=== PATIENT | female | born 1970 | race Caucasian/White ===

== ENCOUNTER 2017-01-29 14:21 | Emergency (ER) | payer BC ==
[2017-01-29 14:31] VITALS: BP 120/68; PULSE 101; RESP 18; TEMP 99
--- NOTE | 2017-01-29 15:14 | XR ---
EXAMINATION TYPE: XR foot complete LT DATE OF EXAM: 01/29/2017 3:07 PM COMPARISON: NONE HISTORY: Pain TECHNIQUE: 3 views FINDINGS: There is evidence of a nondisplaced transverse fracture of the base of the fifth metatarsal . There is no dislocation. Joint spaces are normal. IMPRESSION: Acute fracture of the proximal fifth metatarsal.
--- NOTE | 2017-01-29 15:20 | ED ---
Extremity Problem HPI - General Chief complaint: Extremity Problem,Nontraumatic Stated complaint: Foot Injury Time Seen by Provider: 01/29/17 14:47 Source: patient, RN notes reviewed Mode of arrival: ambulatory Limitations: no limitations - History of Present Illness Initial comments: 46-year-old female presents to the ER with left foot pain. She states that she was walking on a hardwood floor when she felt her foot bent underneath and felt some instant pain and had some swelling on the outside aspect of her foot. She denies any trauma or fall. Denies any loss of consciousness. She denies any constitutional symptoms including headache, weakness, numbness or tingling, nauseousness, vomiting or diarrhea. She has not taken anything for pain and describes it as moderate to severe when she tries to walk on it however at rest she is not in any pain. - Related Data Previous Rx's Medication Instructions Recorded Acetaminophen-Codeine 300-30mg 1 tab PO Q4H PRN #30 tablet 01/29/17 [Tylenol #3] Allergies Allergy/AdvReac Type Severity Reaction Status Date / Time No Known Allergies Allergy Verified 01/29/17 14:31 Review of Systems ROS Statement: Those systems with pertinent positive or pertinent negative responses have been documented in the HPI. ROS Other: All systems not noted in ROS Statement are negative. Past Medical History Past Medical History: No Reported History History of Any Multi-Drug Resistant Organisms: None Reported Past Surgical History: Tubal Ligation Past Psychological History: No Psychological Hx Reported Smoking Status: Current every day smoker Past Alcohol Use History: Rare Past Drug Use History: None Reported General Exam Limitations: no limitations General appearance: alert, in no apparent distress Head exam: Present: atraumatic, normocephalic Eye exam: Present: normal appearance, PERRL, EOMI Pupils: Present: normal accommodation Respiratory exam: Present: normal lung sounds bilaterally Cardiovascular Exam: Present: regular rate, normal rhythm Extremities exam: Present: other (Left foot: Edema at the base of the fifth metatarsal. Tenderness with palpation of the base of the fifth metatarsal. Range of motion intact for ankle. Capillary refill and neurovascular status intact of the left lower extremity. Special testing for ankle joint including anterior drawer and talar fib test are within normal limits. There is no ecchymosis, abrasion or lacerations noted.) Neurological exam: Present: alert, oriented X3, CN II-XII intact, other (Unable to bear weight on the left foot) Psychiatric exam: Present: normal affect, normal mood Skin exam: Present: warm, dry, intact, other (Edema left lateral foot) Course Vital Signs 01/29/17 01/29/17 14:28 15:39 Temperature 99.0 F 99.0 F Pulse Rate 101 H 101 H Respiratory 18 18 Rate Blood Pressure 120/68 120/68 O2 Sat by Pulse 97 97 Oximetry Medical Decision Making - Medical Decision Making 40 erythema presented to the ER with lateral foot pain. Upon exam she does have localized swelling over the base of the fifth metatarsal and tenderness upon palpation. An x-ray was ordered to evaluate the foot. The x-ray does show that there was a fracture nondisplaced of the base of the left fifth metatarsal. Patient was put in a postop boot and given crutches to diminish weightbearing on the foot. She is instructed to follow-up with orthopedics and was given CT imaging of her x-rays. Patient was given Tylenol 3 to help with pain and instructed to alternate with Motrin at home. All questions were answered and patient was agreeable to treatment plan. - Radiology Data Radiology results: report reviewed (Nondisplaced non-angulated fracture of the base of the fifth metatarsal left foot.), image reviewed (Fracture at base of the left fifth metatarsal nondisplaced.) Disposition Clinical Impression: Fracture of fifth metatarsal bone of left foot Disposition: HOME SELF-CARE Condition: Good Instructions: Foot Fracture in Adults (ED) Additional Instructions: To follow-up with orthopedic doctor. To return to the ER with any worsening symptoms or concerns. Prescriptions: Acetaminophen-Codeine 300-30mg [Tylenol #3] 1 tab PO Q4H PRN #30 tablet PRN Reason: Pain Referrals: Karla Landrum, NEIL [PHYSICIAN FRANCHISE MANAGER] - 1-2 days Time of Disposition: 15:54
== END 2017-01-29 15:39 | disposition home or self-care (01) ==
LOC: EC 14:21
DX: S92.355A Nondisplaced fracture of fifth metatarsal bone, left foot, initial encounter for closed fracture (principal); F17.200 Nicotine dependence, unspecified, uncomplicated; X58.XXXA Exposure to other specified factors, initial encounter; Y93.01 Activity, walking, marching and hiking
CPT/HCPCS: 99283

== ENCOUNTER 2018-06-26 07:52 | Day surgery (SDC) | payer BC, OTHER ==
[2018-06-22 15:07] VITALS: BMI 22.4
[~2018-06-26 07:52] MED LIST: LACTATED RINGERS 1,000 ML IV SCH
[2018-06-26 08:53] VITALS: RESP 16; TEMP 98.6
[2018-06-26] MEDS ORDERED: PROPOFOL 10 MG/ML 20 ML VIAL IV ONE (09:54)
[2018-06-26] MEDS ORDERED: LIDOCAINE 1% INJ 10MG/ML (20 ML MDV) ONE (09:54)
--- NOTE | 2018-06-26 10:31 | P.PCN ---
Date of Procedure: 06/26/18 Procedure(s) Performed: Procedure: Colonoscopy and polypectomy. Preoperative diagnosis: Screening for neoplasia, patient has history of polyps. Postoperative diagnoses: 1. Diverticulosis with no evidence of acute diverticulitis or strictures. 2. Small right colon and sigmoid polyps snared but no large polyps or cancer. Preparation: HalfLytely prep. Sedation: Was provided by anesthesia. Brief clinical history: The patient is a 48-year-old female who is scheduled for this evaluation for screening for neoplasia. The patient, apparently, had polyps removed when she was 7 years old but had no evaluation since. The patient has no abdominal complaints, bleeding or anemia. Procedure: With the patient on her left lateral decubitus position and after informed consent and adequate sedation, the perianal area was inspected and it did not show any fissures or fistulas. There were no masses felt on digital rectal examination. The Olympus CFQ 160L video colonoscope was then inserted in the rectum in the usual fashion and advanced to the cecum. There were a few diverticular orifices seen scattered in the sigmoid and occasional diverticular orifice around the hepatic flexure, but there was no evidence of acute diverticulitis or strictures. In the distal right colon and rectum, there were 2 small polyps which were snared and retrieved by suction but there were no large polyps or cancer. I retroflexed the endoscope in the rectum before the endoscope was withdrawn. The patient tolerated the procedure well. Plan: The patient was reassured. Discussed dietary measures. I recommended repeat examination in 5 years. She we will follow up with you as planned.
[2018-06-26 10:49] VITALS: BP 126/77; PULSE 84
[2018-06-26] MEDS ORDERED: LACTATED RINGERS 1,000 ML IV SCH (21:45)
== END 2018-06-26 11:06 | disposition home or self-care (01) ==
LOC: ORWHC2ENDO 07:52
DX: Z12.11 Encounter for screening for malignant neoplasm of colon (principal); D12.2 Benign neoplasm of ascending colon; K62.1 Rectal polyp; K57.30 Diverticulosis of large intestine without perforation or abscess without bleeding; Z86.010 Personal history of colon polyps; Z79.1 Long term (current) use of non-steroidal anti-inflammatories (NSAID)
CPT/HCPCS: 88305; 45385; J2001; J2704

== ENCOUNTER → 2018-07-04 | Outpatient (CLI) | payer OTHER ==
--- NOTE | 2018-07-05 05:38 | MR ---
EXAMINATION TYPE: MR brain wo con DATE OF EXAM: 07/04/2018 COMPARISON: NONE HISTORY: Change in vision, headaches, dizziness, numbness in upper extremities, joint pain, memory lo ss, fatigue all purpose patient. Mononeuropathy bilateral upper extremity per order. TECHNIQUE: Multiplanar, multisequence imaging of the brain and brainstem is performed without IV cont rast. FINDINGS: Diffusion weighted images demonstrate no evidence of a recent infarct or other diffusion abnormality. There is no ordered some extra-axial fluid collection. The ventricular system and cisternal spaces a re normal in size and appearance. The brain volume is age appropriate. There are scattered foci of T 2 hyperintensity seen throughout the white matter bilaterally. I estimate roughly 15 scattered lesion s, majority superficial location. For reference roughly 7 lesions are seen on axial image 22 with lar gest being a 5 mm right parietal superficial lesion. Midline structures demonstrate normal morphology. The craniocervical junction appears within normal limits. Normal vascular flow voids are present. Tortuous course to the distal right vertebral artery is present. The visualized sinuses are clear and the globes are intact. IMPRESSION: Mild nonspecific white matter changes as detailed above.
== END ==
LOC: RADMRIMAIN 17:47
PROVIDERS: ATTEND Family Medicine
DX: R90.89 Other abnormal findings on diagnostic imaging of central nervous system (principal); G56.93 Unspecified mononeuropathy of bilateral upper limbs
CPT/HCPCS: 70551

== ENCOUNTER → 2018-07-18 | Outpatient (CLI) | payer OTHER ==
--- NOTE | 2018-07-18 14:34 | CT ---
EXAMINATION TYPE: CT chest wo con DATE OF EXAM: 07/18/2018 COMPARISON: None HISTORY: Solitary pulmonary nodule CT DLP: 174.4 mGycm. Automated Exposure Control for Dose Reduction was Utilized. TECHNIQUE: CT scan of the thorax is performed without IV contrast. FINDINGS: LUNGS: The lungs are grossly remarkable for subpleural nodule on axial image 25 posteriorly at the le kishan of the superior segment of the right lower lobe measuring approximately 4 to 5 mm. In the left lo wer lobe on axial image 48 nodular density is present which may be related to scarring and measures o nly 5 mm laterally. There is no pleural effusion or pneumothorax seen. The tracheobronchial tree i s patent. Mild centrilobular emphysematous changes are present. MEDIASTINUM: Lack of IV contrast is noted to limit evaluation for mediastinal and especially hilar ad enopathy. There are no definitive greater than 1 cm hilar or mediastinal lymph nodes. No cardiomega ly or pericardial effusion is seen. OTHER: There is joint space loss at the sternomanubrial junction, sclerosis is present in the subchon dral location, findings may be due to chronic stress change, chronic infection felt to be less likely , correlate. Degenerative disc changes are present in the visualized spine. IMPRESSION: Pulmonary nodules felt likely to be benign, document 2 years of stability or better evalu ation. Findings at the sternomanubrial joint as described. Emphysema changes are mild.
== END ==
LOC: RADCTMAIN 13:42
PROVIDERS: ATTEND Family Medicine
DX: J43.9 Emphysema, unspecified (principal); R91.8 Other nonspecific abnormal finding of lung field
CPT/HCPCS: 71250

== ENCOUNTER → 2018-10-12 | Outpatient (CLI) | payer BC ==
[2018-10-12 16:40] LABS: Basophils % (A) 1 %; Eosinophils # (A) 0.1 k/uL (0-0.7); Eosinophils % (A) 2 %; HCT 45.5 % (34.0-46.0); HGB 14.8 gm/dL (11.4-16.0); Lymphocytes # (A) 2.9 k/uL (1.0-4.8); Lymphocytes % (A) 46 %; MCH 31.4 pg (25.0-35.0); MCHC 32.5 g/dL (31.0-37.0); MCV 96.5 fL (80.0-100.0); Mean Platelet Volume 6.5; Monocytes # (A) 0.3 k/uL (0-1.0); Monocytes % (A) 4 %; Neutrophils # (A) 2.8 k/uL (1.3-7.7); Neutrophils % (A) 44 %; Platelet Count 315 k/uL (150-450); RBC 4.72 m/uL (3.80-5.40); RDW 12.9 % (11.5-15.5); WBC 6.3 k/uL (3.8-10.6)
[2018-10-12 19:29] LABS: Erythrocyte Sedimentation Rate 6 mm/hr (0-20)
[2018-10-12 22:44] LABS: Rheumatoid Factor 7 IU/mL (0-15)
[2018-10-12 22:46] LABS: ALT 16 U/L (8-44); AST 27 U/L (13-35); Alkaline Phosphatase 69 U/L (41-126); C Reactive Protein <0.4 mg/dL (0.0-0.8); Calcium 9.3 mg/dL (8.7-10.3); Chloride 109 mmol/L (96-109); Globulin 1.8 g/dL (1.6-3.3); Glucose 69 mg/dL (70-110); Potassium 4.7 mmol/L (3.5-5.5); Sodium 143 mmol/L (135-145); Total Bilirubin 0.2 mg/dL (0.3-1.2); Total Protein 6.3 g/dL (6.2-8.2)
[2018-10-12 22:48] LABS: Vitamin D 25 Hydroxy 16.7 ng/mL (30.0-100.0)
== END ==
LOC: LABWHC1 16:08
PROVIDERS: ATTEND Nurse Practitioner Acute Care
DX: M13.0 Polyarthritis, unspecified (principal); H53.9 Unspecified visual disturbance; R20.2 Paresthesia of skin; R51 Headache; R42 Dizziness and giddiness
CPT/HCPCS: 36415; 80053; 82306; 82607; 84207; 85025; 85652; 86038; 86140; 86431

== ENCOUNTER → 2018-10-23 | Outpatient (CLI) | payer BC | END | disposition home or self-care (01) | LOC: LABWHC1 15:05 | PROVIDERS: ATTEND Psychiatry & Neurology Neurology | DX: Z53.9 Procedure and treatment not carried out, unspecified reason (principal) ==

== ENCOUNTER → 2018-12-17 | Outpatient (CLI) | payer BC ==
--- NOTE | 2018-12-17 09:47 | FL ---
EXAMINATION TYPE: FL barium swallow DATE OF EXAM: 12/17/2018 CLINICAL HISTORY: Dysphagia per order. Food and liquids getting stuck for one month increasing in sev erity over last week with heartburn and reflux-like symptoms. Recent course of steroids without impro vement. TECHNIQUE: A double contrast esophagram is performed utilizing air and barium. A total of 33 second s of fluoroscopic time was utilized during procedure. 41 spot images are saved. COMPARISON: Chest CT July 18, 2018. FINDINGS: The esophagus shows satisfactory motility and emptying into the stomach. No evidence of in traluminal mass, outpouching diverticulum, or stricture noted. Small sliding-type hiatal hernia is vi sualized towards end of study. No fixed hernia is seen. No significant gastroesophageal reflux was se en during real time performance of this study. IMPRESSION: Small sliding-type hiatal hernia otherwise unremarkable study.
== END | disposition home or self-care (01) ==
LOC: RADFLWHC 09:02
PROVIDERS: ATTEND Family Medicine
DX: K44.9 Diaphragmatic hernia without obstruction or gangrene (principal)
CPT/HCPCS: 74220

== ENCOUNTER → 2019-07-09 | Outpatient (CLI) | payer BC ==
--- NOTE | 2019-07-09 16:07 | CT ---
EXAMINATION TYPE: CT sinus wo con DATE OF EXAM: 07/09/2019 COMPARISON: None HISTORY: 49-year-old female CHRONIC SINUS INFECTIONS, [place] CT DLP: 559 mGycm Automated exposure control for dose reduction was used. TECHNIQUE: Noncontrast axial views of the paranasal sinuses were obtained. Coronal reconstructions pe rformed. FINDINGS: PARANASAL SINUSES: The frontal, ethmoid, maxillary and sphenoid sinuses are clear and well pneumatized. There is no mucosal thickening or air-fluid level. Reactive loli- osteogenesis is not seen. There is no destruction of the osseous mcmahan of the paranasal sinuses. THE NASAL CAVITY: The osteomeatal complexes are patent. All rightward nasal septal deviation. The imaged brain and orbits are normal in appearance. The visualized mastoid air cells and middle ear cavities are well pneumatized. Reformatted images confirm above findings. IMPRESSION: No significant paranasal sinus disease. Rightward nasal septal deviation.
== END | disposition home or self-care (01) ==
LOC: RADCTMAIN 13:26
PROVIDERS: ATTEND Otolaryngology Otolaryngic Allergy
DX: J34.2 Deviated nasal septum (principal); J31.0 Chronic rhinitis
CPT/HCPCS: 70486

== ENCOUNTER → 2019-08-12 | Outpatient (CLI) | payer BC ==
--- NOTE | 2019-08-13 08:32 | BD ---
EXAMINATION TYPE: Axial Bone Density DATE OF EXAM: 08/12/2019 COMPARISON: NONE CLINICAL HISTORY: Height: 60.5 IN Weight: 136 LBS FRAX RISK QUESTIONS: Secondary Osteoporosis: Current Tobacco Use: YES RISK FACTORS HISTORY OF: History of Wrist Fracture: YES LEFT When: AGE 8 Family History of Osteoporosis: YES GRANDMOTHER (M) Active: YES Postmenopausal woman: AGE 43 Take estrogen and/or progesterone medications: NOT NOW How lon YEAR Lost more than 2 inches in height since high school: YES 09/19" MEDICATIONS: Additional Medications: VIT D, LOW DOSE ASPIRIN, ANXIETY MED, LYRICA, MOBIC, MUSCLE SPASM MED, MIGRAI NE MED, MULTI VIT, ELDERBERRY EXAM MEASUREMENTS: Bone mineral densitometry was performed using the [employer]. Bone mineral density as measured about the Lumbar spine is: ----- L1-L4(G/cm2): 1.043 T Score Values are as follows: ----- L2: -1.7 ----- L3: -1.0 ----- L4: -0.7 ----- L1-L4: -1.1 Bone mineral density BASELINE Bone mineral density about the R hip (g/cm2): 0.902 Bone mineral density about the L hip (g/cm2): 0.965 T Score values are as follows: -----R Neck: -1.0 -----L Neck: -0.5 -----R Total: -0.6 -----L Total: -0.6 Bone mineral density BASELINE IMPRESSION: Osteopenia lumbar spine. NOTE: T-SCORE=SD OF THE YOUNG ADULT MEAN.
== END | disposition home or self-care (01) ==
LOC: RADBDWWP 15:11
PROVIDERS: ATTEND Family Medicine
DX: Z13.820 Encounter for screening for osteoporosis (principal); M85.88 Other specified disorders of bone density and structure, other site
CPT/HCPCS: 77080

== ENCOUNTER → 2019-08-27 | Outpatient (CLI) | payer BC | END | disposition home or self-care (01) | LOC: LABWHC1 16:05 | PROVIDERS: ATTEND Nurse Practitioner Acute Care | DX: I49.9 Cardiac arrhythmia, unspecified (principal) | CPT/HCPCS: 36415; 93005 ==

== ENCOUNTER → 2020-03-02 | Outpatient (CLI) | payer BC ==
[2020-03-02 14:47] LABS: Basophils % (A) 1 %; Eosinophils # (A) 0.1 k/uL (0-0.7); Eosinophils % (A) 1 %; HCT 43.9 % (34.0-46.0); HGB 14.5 gm/dL (11.4-16.0); Lymphocytes # (A) 2.2 k/uL (1.0-4.8); Lymphocytes % (A) 34 %; MCH 31.6 pg (25.0-35.0); MCHC 33.1 g/dL (31.0-37.0); MCV 95.3 fL (80.0-100.0); Mean Platelet Volume 6.9; Monocytes # (A) 0.3 k/uL (0-1.0); Monocytes % (A) 5 %; Neutrophils # (A) 3.7 k/uL (1.3-7.7); Neutrophils % (A) 57 %; Platelet Count 258 k/uL (150-450); RDW 13.3 % (11.5-15.5); WBC 6.5 k/uL (3.8-10.6)
[2020-03-02 17:24] LABS: Erythrocyte Sedimentation Rate 8 mm/hr (0-20)
[2020-03-02 20:37] LABS: % Iron Saturation 30.38 (12.00-45.00); ALT 23 U/L (8-44); AST 31 U/L (13-35); African American GFR (CKD) 122.3 (60.0-200.0); Albumin/Globulin Ratio 2.44 (1.60-3.17); Alkaline Phosphatase 59 U/L (41-126); BUN/Creat Ratio 18.33 Ratio (12.00-20.00); C Reactive Protein <0.4 mg/dL (0.0-0.8); Calcium 9.4 mg/dL (8.7-10.3); Carbon Dioxide 29.1 mmol/L (21.6-31.8); Chloride 108 mmol/L (96-109); Globulin 1.8 g/dL (1.6-3.3); Glucose 85 mg/dL (70-110); Iron 120 ug/dL (50-170); Non-African American GFR(CKD) 105.5 (60.0-200.0); Potassium 4.9 mmol/L (3.5-5.5); Sodium 142 mmol/L (135-145); Total Bilirubin 0.4 mg/dL (0.3-1.2); Total Iron Binding Capacity 395 ug/dL (228-460); Total Protein 6.2 g/dL (6.2-8.2)
== END | disposition home or self-care (01) ==
LOC: LABWHC1 13:31
PROVIDERS: ATTEND Nurse Practitioner Acute Care
DX: D64.9 Anemia, unspecified (principal); R53.82 Chronic fatigue, unspecified; E55.9 Vitamin D deficiency, unspecified; M13.0 Polyarthritis, unspecified
CPT/HCPCS: 36415; 80053; 82306; 82607; 83540; 83550; 84207; 84439; 84443; 84481; 85025; 85652; 86140

== ENCOUNTER → 2020-03-26 | Outpatient (CLI) | payer BC ==
--- NOTE | 2020-03-26 14:47 | MR ---
EXAMINATION TYPE: MR knee RT wo con DATE OF EXAM: 03/26/2020 COMPARISON: None HISTORY: Right knee pain TECHNIQUE: Multiplanar, multisequence images of the knee is performed without IV contrast. FINDINGS: MEDIAL MENISCUS: Anterior and posterior horns are intact without tear. LATERAL MENISCUS: Anterior and posterior horns are intact without tear. CRUCIATE LIGAMENTS: There is increased signal involving the ACL at its tibial insertion felt to refle ct strain. No evidence for partial or complete tear. PCL is intact. COLLATERAL LIGAMENTS: The medial collateral ligament and lateral collateral ligament complex are inta ct and unremarkable. EXTENSOR MECHANISM: Visualized quadriceps and patellar tendons are intact. EFFUSION: No significant suprapatellar joint effusion. POPLITEAL CYST: No popliteal/ramirez cyst. TRICOMPARTMENT SPACES: Intact CARTILAGE: Intact BONE MARROW SIGNAL: No focal abnormal marrow signal is appreciated. OTHER: Mild prepatellar edema noted. IMPRESSION: 1. Suspect ACL strain. 2. Mild prepatellar edema.
--- NOTE | 2020-03-26 15:46 | MR ---
EXAMINATION TYPE: MR knee LT wo con DATE OF EXAM: 03/26/2020 COMPARISON: none HISTORY: R52 pain TECHNIQUE: Multiplanar, multisequence images of the knee is performed without IV contrast. FINDINGS: MEDIAL MENISCUS: Myxoid degeneration posterior horn medial meniscus without definite tear. Anterior h orn is intact. LATERAL MENISCUS: Anterior and posterior horns are intact without tear. CRUCIATE LIGAMENTS: The anterior and posterior cruciate ligaments are intact and unremarkable. COLLATERAL LIGAMENTS: The medial collateral ligament and lateral collateral ligament complex are inta ct and unremarkable. EXTENSOR MECHANISM: Visualized quadriceps and patellar tendons are intact. EFFUSION: No significant suprapatellar joint effusion. POPLITEAL CYST: Pérez's cyst measuring 2.1 cm. TRICOMPARTMENT SPACES: Intact CARTILAGE: Intact BONE MARROW SIGNAL: No focal abnormal marrow signal is appreciated. OTHER: No additional significant abnormality is appreciated. IMPRESSION: Myxoid degeneration posterior horn medial meniscus without evidence for tear.
== END | disposition home or self-care (01) ==
LOC: RADMRIMAIN 13:15
PROVIDERS: ATTEND Nurse Practitioner Acute Care
DX: M25.562 Pain in left knee (principal); R60.0 Localized edema

== ENCOUNTER → 2020-07-03 | Outpatient (CLI) | payer BC | END | disposition home or self-care (01) | LOC: LABWHC1 10:35 | PROVIDERS: ATTEND Nurse Practitioner Acute Care | DX: I49.9 Cardiac arrhythmia, unspecified (principal) | CPT/HCPCS: 36415; 93005 ==

== ENCOUNTER → 2020-08-07 | Outpatient (CLI) | payer BC ==
[2020-08-07 12:22] LABS: Basophils % (A) 0 %; Eosinophils # (A) 0.1 k/uL (0-0.7); Eosinophils % (A) 1 %; HCT 42.7 % (34.0-46.0); HGB 13.7 gm/dL (11.4-16.0); Lymphocytes # (A) 2.3 k/uL (1.0-4.8); Lymphocytes % (A) 32 %; MCH 30.7 pg (25.0-35.0); MCV 95.8 fL (80.0-100.0); Mean Platelet Volume 6.3; Monocytes # (A) 0.3 k/uL (0-1.0); Monocytes % (A) 4 %; Neutrophils # (A) 4.3 k/uL (1.3-7.7); Neutrophils % (A) 60 %; Platelet Count 267 k/uL (150-450); RBC 4.46 m/uL (3.80-5.40); RDW 13.2 % (11.5-15.5); WBC 7.2 k/uL (3.8-10.6)
[2020-08-07 19:47] LABS: African American GFR (CKD) 121.5 (60.0-200.0); Albumin 4.1 g/dL (3.80-4.90); Albumin/Globulin Ratio 2.41 (1.60-3.17); Anion Gap 2.9 mmol/L (4.00-12.00); BUN/Creat Ratio 18.33 Ratio (12.00-20.00); Carbon Dioxide 31.1 mmol/L (21.6-31.8); Chol/HDL Ratio 3.18; Globulin 1.7 g/dL (1.6-3.3); LDL Cholesterol,Calculated 145.4 mg/dL (0.0-131.0); Non-African American GFR(CKD) 104.8 (60.0-200.0); Potassium 4.2 mmol/L (3.5-5.5); Total Bilirubin 0.2 mg/dL (0.2-1.2); Total Protein 5.8 g/dL (6.2-8.2); VLDL Calculation 11.6 mg/dL (5.00-40.00)
[2020-08-07 21:52] LABS: T4, Free (Free Thyroxine) 0.9 ng/dL (0.80-1.80)
== END | disposition home or self-care (01) ==
LOC: LABWHC1 11:21
PROVIDERS: ATTEND Nurse Practitioner Acute Care
DX: E55.9 Vitamin D deficiency, unspecified (principal); Z51.81 Encounter for therapeutic drug level monitoring
CPT/HCPCS: 36415; 80053; 80061; 82306; 82607; 84439; 84443; 84481; 85025

== ENCOUNTER → 2021-02-08 | Outpatient (CLI) | payer OTHER | END | disposition home or self-care (01) | LOC: LABWHC1 12:52 | PROVIDERS: ATTEND Nurse Practitioner Acute Care | DX: I49.9 Cardiac arrhythmia, unspecified (principal) | CPT/HCPCS: 36415; 93005 ==

== ENCOUNTER → 2021-04-09 | Outpatient (CLI) | payer OTHER ==
[2021-04-09 19:27] LABS: WBC 5.73 X 10*3/uL (4.50-10.00)
[2021-04-09 19:28] LABS: Basophils # (A) 0.03 X 10*3/uL (0.00-0.10); Basophils % (A) 0.5 %; Eosinophils # (A) 0.11 X 10*3/uL (0.04-0.35); Eosinophils % (A) 1.9 %; HGB 13.5 g/dL (12.0-15.0); Lymphocytes # (A) 2.07 X 10*3/uL (0.90-5.00); Lymphocytes % (A) 36.1 %; MCH 30.9 pg (27.0-32.0); MCHC 32.1 g/dL (32.0-37.0); MCV 96.1 fL (80.0-97.0); Mean Platelet Volume 9.7 fL (9.5-12.2); Monocytes # (A) 0.42 X 10*3/uL (0.20-1.00); Monocytes % (A) 7.3 %; Neutrophils # (A) 3.09 X 10*3/uL (1.80-7.70); Platelet Count 252 X 10*3/uL (140-440); RBC 4.37 X 10*6/uL (4.10-5.20); RDW 13.2 % (11.5-14.5)
[2021-04-09 23:55] LABS: ALT 30 U/L (8-44); AST 38 U/L (13-35); African American GFR (CKD) 120.6 (60.0-200.0); Albumin/Globulin Ratio 2.05 (1.60-3.17); Alkaline Phosphatase 65 U/L (41-126); BUN/Creat Ratio 16.67 Ratio (12.00-20.00); Calcium 9.3 mg/dL (8.7-10.3); Carbon Dioxide 26.5 mmol/L (21.6-31.8); Chloride 113 mmol/L (96-109); Globulin 2.1 g/dL (1.6-3.3); Glucose 90 mg/dL (70-110); Non-African American GFR(CKD) 104.1 (60.0-200.0); Potassium 4.9 mmol/L (3.5-5.5); Sodium 143 mmol/L (135-145); Total Bilirubin 0.3 mg/dL (0.2-1.2); Total Protein 6.4 g/dL (6.2-8.2)
[2021-04-10 00:55] LABS: Vitamin B12 >4000.0 pg/mL (211-911)
== END | disposition home or self-care (01) ==
LOC: LABWHC1 12:10
PROVIDERS: ATTEND Nurse Practitioner Acute Care
DX: M79.7 Fibromyalgia (principal); E55.9 Vitamin D deficiency, unspecified; E53.9 Vitamin B deficiency, unspecified; R90.82 White matter disease, unspecified
CPT/HCPCS: 36415; 80053; 82306; 82607; 84207; 85025

== ENCOUNTER → 2022-06-21 | Outpatient (CLI) | payer MEDICARE | END | disposition home or self-care (01) | LOC: LABWHC1 13:53 | PROVIDERS: ATTEND Nurse Practitioner Acute Care | DX: I49.9 Cardiac arrhythmia, unspecified (principal) | CPT/HCPCS: 36415; 93005 ==

== ENCOUNTER 2024-03-08 07:17 | Emergency (ER) | payer MEDICARE ==
--- NOTE | 2024-03-08 07:36 | ED ---
General Adult HPI - General Chief complaint: Nausea/Vomiting/Diarrhea Stated complaint: Vomiting,Abd pain Time Seen by Provider: 03/08/24 07:30 Source: patient, RN notes reviewed, old records reviewed Mode of arrival: ambulatory Limitations: no limitations - History of Present Illness Initial comments: This is a 53-year-old female who presents emergency department stating that yesterday she started feeling sick and she had a temperature. Patient states she also started vomiting yesterday. Patient states she has had diarrhea but that has been ongoing for the last month. Patient denies abdominal pain. Patient has dysuria hematuria urinary frequency. Patient Nuys any sore throat or cough. Patient denies any chest pain. Patient states she has a mild headache. But she has not taken anything for fever. Patient denies any back pain. - Related Data Previous Rx's Medication Instructions Recorded Acetaminophen-Codeine 300-30mg 1 tab PO Q4H PRN #30 tablet 01/29/17 [Tylenol #3] Allergies Allergy/AdvReac Type Severity Reaction Status Date / Time No Known Allergies Allergy Verified 07/10/18 10:00 Review of Systems ROS Statement: Those systems with pertinent positive or pertinent negative responses have been documented in the HPI. ROS Other: All systems not noted in ROS Statement are negative. Past Medical History Past Medical History: No Reported History Additional Past Medical History / Comment(s): Severe constipation, nodules on her lung had a CT scan but states everything is ok. Severe headache about 3 months ago. States just feels terrible. History of Any Multi-Drug Resistant Organisms: None Reported Past Surgical History: Tubal Ligation Additional Past Surgical History / Comment(s): Polyps removed. Surgery as a child on her intestine not sure what she had done. Past Anesthesia/Blood Transfusion Reactions: No Reported Reaction Past Psychological History: No Psychological Hx Reported Smoking Status: Never smoker Past Alcohol Use History: Rare Past Drug Use History: None Reported - Past Family History Father Family Medical History: Cancer Additional Family Medical History / Comment(s): Lung Mother Family Medical History: No Reported History General Exam - General Exam Comments Initial Comments: GENERAL: Patient is well-developed and well-nourished. Patient is nontoxic and well- hydrated and is in mild distress. ENT: Neck is soft and supple. No significant lymphadenopathy is noted. Oropharynx is clear. Moist mucous membranes. Neck has full range of motion without eliciting any pain. EYES: The sclera were anicteric and conjunctiva were pink and moist. Extraocular movements were intact and pupils were equal round and reactive to light. Eyelids were unremarkable. PULMONARY: Unlabored respirations. Good breath sounds bilaterally. No audible rales rhonchi or wheezing was noted. CARDIOVASCULAR: There is a regular rate and rhythm without any murmurs gallops or rubs. ABDOMEN: Soft and nontender with normal bowel sounds. SKIN: Skin is clear with no lesions or rashes and otherwise unremarkable. NEUROLOGIC: Patient is alert and oriented x3. Cranial nerves II through XII are grossly intact. Motor and sensory are also intact. Normal speech, volume and content. Symmetrical smile. MUSCULOSKELETAL: Normal extremities with adequate strength and full range of motion. No lower extremity swelling or edema. No calf tenderness. LYMPHATICS: No significant lymphadenopathy is noted PSYCHIATRIC: Normal psychiatric evaluation. Limitations: no limitations Course Vital Signs 03/08/24 03/08/24 03/08/24 07:28 07:31 08:40 Temperature 98.1 F 100 F H 98.9 F Pulse Rate 111 H Respiratory 20 Rate Blood Pressure 126/79 O2 Sat by Pulse 99 Oximetry Medical Decision Making - Medical Decision Making Was pt. sent in by a medical professional or institution (, PA, [facility], urgent care, hospital, or jail...) When possible be specific @ -No Did you speak to anyone other than the patient for history (EMS, parent, family, police, friend...)? What history was obtained from this source @ -No Did you review nursing and triage notes (agree or disagree)? Why? @ -I reviewed and agree with nursing and triage notes Were old charts reviewed (outside hosp., previous admission, EMS record, old EKG, old radiological studies, urgent care reports/EKG's, jail records)? Report findings @ -No old charts were reviewed Differential Diagnosis (chest pain, altered mental status, abdominal pain women, abdominal pain men, vaginal bleeding, weakness, fever, dyspnea, syncope, headache, dizziness, GI bleed, back pain, seizure, CVA, palpatations, mental health, musculoskeletal)? @ -Differential Abdominal Pain Women: Appendicitis, Cholecystitis, diverticulosis, ischemic bowel, pancreatitis, hepatitis, UTI, gastroenteritis, AAA, incarcerated hernia, bowel obstruction, constipation, inflammatory bowel, hepatitis, peptic ulcer disease, splenic infarction, perforated viscus, vulvitis, ovarian torsion, PID, kidney stone, placenta abruption, this is not meant to be an all-inclusive list EKG interpreted by me (3pts min.). @ -As above X-rays interpreted by me (1pt min.). @ -None done CT interpreted by me (1pt min.). @ -None done U/S interpreted by me (1pt. min.). @ -None done What testing was considered but not performed or refused? (CT, X-rays, U/S, labs)? Why? @ -None What meds were considered but not given or refused? Why? @ -None Did you discuss the management of the patient with other professionals (professionals i.e. , PA, [facility] [facility], lab, RT, psych nurse, social insurance specialist, business associate, teacher, special forces warrant officer, outpatient case manager)? Give summary @ -No Was smoking cessation discussed for >3mins.? @ -No Was critical care preformed (if so, how long)? @ -No Were there social determinants of health that impacted care today? How? (Homelessness, low income, unemployed, alcoholism, drug addiction, transportation, low edu. Level, literacy, decrease access to med. care, penitentiary, rehab)? @ -No Was there de-escalation of care discussed even if they declined (Discuss DNR or withdrawal of care, Hospice)? DNR status @ -No What co-morbidities impacted this encounter? (DM, HTN, Smoking, COPD, CAD, Cancer, CVA, ARF, Chemo, Hep., AIDS, mental health diagnosis, sleep apnea, morbid obesity)? @ -None Was patient admitted / discharged? Hospital course, mention meds given and route, prescriptions, significant lab abnormalities, going to OR and other per tinent info. @ -Patient was given Zofran and Lomotil in the emergency department. Patient's lab work and back within normal range. I went back and reexamined the patient she was having no symptoms at this time and she will be discharged home. Undiagnosed new problem with uncertain prognosis? @ -No Drug Therapy requiring intensive monitoring for toxicity (Heparin, Nitro, Insulin, Cardizem)? @ -No Were any procedures done? @ -No Diagnosis/symptom? @ -Gastroenteritis Acute, or Chronic, or Acute on Chronic? @ -Acute Uncomplicated (without systemic symptoms) or Complicated (systemic symptoms)? @ -Complicated Side effects of treatment? @ -No Exacerbation, Progression, or Severe Exacerbation? @ -No Poses a threat to life or bodily function? How? (Chest pain, [place], NH, pneumonia, PE, COPD, DKA, ARF, appy, cholecystitis, CVA, Diverticulitis, Homicidal, Suicidal, threat to staff... and all critical care pts) @ -No - Lab Data Result diagrams: 03/08/24 07:39 03/08/24 07:39 Lab Results 03/08/24 03/08/24 03/08/24 Range/Units 07:39 07:39 07:39 WBC 6.9 (3.8-10.6) k/uL RBC 5.07 (3.80-5.40) m/uL Hgb 15.2 (11.4-16.0) gm/dL Hct 47.6 H (34.0-46.0) % MCV 93.9 (80.0-100.0) fL MCH 30.0 (25.0-35.0) pg MCHC 31.9 (31.0-37.0) g/dL RDW 14.1 (11.5-15.5) % Plt Count 278 (150-450) k/uL MPV 7.3 Neutrophils % 76 % Lymphocytes % 16 % Monocytes % 6 % Eosinophils % 0 % Basophils % 0 % Neutrophils # 5.2 (1.3-7.7) k/uL Lymphocytes # 1.1 (1.0-4.8) k/uL Monocytes # 0.4 (0-1.0) k/uL Eosinophils # 0.0 (0-0.7) k/uL Basophils # 0.0 (0-0.2) k/uL Sodium 138 (137-145) mmol/L Potassium 4.3 (3.5-5.1) mmol/L Chloride 106 (98-107) mmol/L Carbon Dioxide 25 (22-30) mmol/L Anion Gap 7 mmol/L BUN 9 (7-17) mg/dL Creatinine 0.43 L (0.52-1.04) mg/dL Est GFR (CKD-EPI)AfAm >90 (>60 ml/min/1.73 sqM) Est GFR (CKD-EPI)NonAf >90 (>60 ml/min/1.73 sqM) Glucose 113 H (74-99) mg/dL Plasma Lactic Acid Miko (0.7-2.0) mmol/L Calcium 9.6 (8.4-10.2) mg/dL Total Bilirubin 0.7 (0.2-1.3) mg/dL AST 27 (14-36) U/L ALT 18 (4-34) U/L Alkaline Phosphatase 86 (38-126) U/L Total Protein 7.1 (6.3-8.2) g/dL Albumin 4.5 (3.5-5.0) g/dL Amylase 66 (30-110) U/L Lipase 68 (23-300) U/L Urine Color Colorless Urine Appearance Clear (Clear) Urine pH 5.5 (5.0-8.0) Ur Specific [place] 1.006 (1.001-1.035) Urine Protein Negative (Negative) Urine Glucose (UA) Negative (Negative) Urine Ketones 2+ H (Negative) Urine Blood Trace H (Negative) Urine Nitrite Negative (Negative) Urine Bilirubin Negative (Negative) Urine Urobilinogen <2.0 (<2.0) mg/dL Ur Leukocyte Esterase Negative (Negative) Urine RBC 2 (0-5) /hpf Urine WBC 1 (0-5) /hpf Ur Squamous Epith Cells 1 (0-4) /hpf Urine Bacteria Rare H (None) /hpf Urine Mucus Rare H (None) /hpf 03/08/24 Range/Units 07:39 WBC (3.8-10.6) k/uL RBC (3.80-5.40) m/uL Hgb (11.4-16.0) gm/dL Hct (34.0-46.0) % MCV (80.0-100.0) fL MCH (25.0-35.0) pg MCHC (31.0-37.0) g/dL RDW (11.5-15.5) % Plt Count (150-450) k/uL MPV Neutrophils % % Lymphocytes % % Monocytes % % Eosinophils % % Basophils % % Neutrophils # (1.3-7.7) k/uL Lymphocytes # (1.0-4.8) k/uL Monocytes # (0-1.0) k/uL Eosinophils # (0-0.7) k/uL Basophils # (0-0.2) k/uL Sodium (137-145) mmol/L Potassium (3.5-5.1) mmol/L Chloride (98-107) mmol/L Carbon Dioxide (22-30) mmol/L Anion Gap mmol/L BUN (7-17) mg/dL Creatinine (0.52-1.04) mg/dL Est GFR (CKD-EPI)AfAm (>60 ml/min/1.73 sqM) Est GFR (CKD-EPI)NonAf (>60 ml/min/1.73 sqM) Glucose (74-99) mg/dL Plasma Lactic Acid Miko 1.1 (0.7-2.0) mmol/L Calcium (8.4-10.2) mg/dL Total Bilirubin (0.2-1.3) mg/dL AST (14-36) U/L ALT (4-34) U/L Alkaline Phosphatase (38-126) U/L Total Protein (6.3-8.2) g/dL Albumin (3.5-5.0) g/dL Amylase (30-110) U/L Lipase (23-300) U/L Urine Color Urine Appearance (Clear) Urine pH (5.0-8.0) Ur Specific [place] (1.001-1.035) Urine Protein (Negative) Urine Glucose (UA) (Negative) Urine Ketones (Negative) Urine Blood (Negative) Urine Nitrite (Negative) Urine Bilirubin (Negative) Urine Urobilinogen (<2.0) mg/dL Ur Leukocyte Esterase (Negative) Urine RBC (0-5) /hpf Urine WBC (0-5) /hpf Ur Squamous Epith Cells (0-4) /hpf Urine Bacteria (None) /hpf Urine Mucus (None) /hpf Disposition Clinical Impression: Gastroenteritis Disposition: HOME SELF-CARE Condition: Good Instructions (If sedation given, give patient instructions): Gastroenteritis (ED) Is patient prescribed a controlled substance at d/c from ED?: No Referrals: Nonstaff,Physician [Primary Care Provider] - 1-2 days Time of Disposition: 10:38
[2024-03-08] MEDS: SODIUM CHLORIDE 0.9% 500 ML 500 ML IV STA (07:41)
[2024-03-08] MEDS: SODIUM CHLORIDE 0.9% 1,000 ML IV STA (07:41)
[2024-03-08] MEDS: ONDANSETRON 4 MG/2 ML VIAL IVP STA (07:42)
[2024-03-08] MEDS: ACETAMINOPHEN TAB 500 MG TAB PO STA (07:44)
[2024-03-08] MEDS: IBUPROFEN 600 MG TAB PO STA (07:44)
[2024-03-08 08:06] LABS: Basophils % (A) 0 %; Eosinophils % (A) 0 %; HCT 47.6 % (34.0-46.0); HGB 15.2 gm/dL (11.4-16.0); Lymphocytes # (A) 1.1 k/uL (1.0-4.8); Lymphocytes % (A) 16 %; MCHC 31.9 g/dL (31.0-37.0); MCV 93.9 fL (80.0-100.0); Mean Platelet Volume 7.3; Monocytes # (A) 0.4 k/uL (0-1.0); Monocytes % (A) 6 %; Neutrophils # (A) 5.2 k/uL (1.3-7.7); Neutrophils % (A) 76 %; Platelet Count 278 k/uL (150-450); RBC 5.07 m/uL (3.80-5.40); RDW 14.1 % (11.5-15.5); WBC 6.9 k/uL (3.8-10.6)
[2024-03-08 08:10] LABS: ALT 18 U/L (4-34); AST 27 U/L (14-36); African American GFR (CKD) >90 (>60 ml/min/1.73 sqM); Albumin 4.5 g/dL (3.5-5.0); Alkaline Phosphatase 86 U/L (38-126); Amylase 66 U/L (30-110); Anion Gap 7 mmol/L; Blood Urea Nitrogen 9 mg/dL (7-17); Calcium 9.6 mg/dL (8.4-10.2); Carbon Dioxide 25 mmol/L (22-30); Chloride 106 mmol/L (98-107); Glucose 113 mg/dL (74-99); Lipase 68 U/L (23-300); Non-African American GFR(CKD) >90 (>60 ml/min/1.73 sqM); Potassium 4.3 mmol/L (3.5-5.1); Sodium 138 mmol/L (137-145); Total Bilirubin 0.7 mg/dL (0.2-1.3); Total Protein 7.1 g/dL (6.3-8.2)
[2024-03-08 09:53] LABS: Appearance,Urine Clear (Clear); Bacteria,Urine Rare /hpf; Bilirubin,Urine Negative (Negative); Blood,Urine Trace (Negative); Color,Urine Colorless; Glucose,Urine (UA) Negative (Negative); Ketones,Urine 2+ (Negative); Leukocyte Esterase,Urine Negative (Negative); Mucus,Urine Rare /hpf; Nitrite,Urine Negative (Negative); PH, Urine 5.5 (5.0-8.0); Protein,Urine Negative (Negative); RBC,Urine 2 /hpf (0-5); Specific Gravity,Urine 1.006 (1.001-1.035); Squamous Epithelial Cell,Urine 1 /hpf (0-4); Urobilinogen,Urine <2.0 mg/dL (<2.0); WBC,Urine 1 /hpf (0-5)
--- NOTE | 2024-03-08 10:21 | XR ---
EXAMINATION TYPE: XR chest 2V DATE OF EXAM: 03/08/2024 8:02 AM CLINICAL INDICATION:Female, 53 years old with history of abdominal pain; COMPARISON: 03/08/2024 TECHNIQUE: XR chest 2V Frontal and lateral views of the chest. FINDINGS: Lungs/Pleura: There is flattening of the diaphragm with increased lucency of the lungs. No evidence o f pneumothorax, pleural effusion or focal consolidation. Pulmonary vascularity: Unremarkable. Heart/mediastinum: Cardiomediastinal silhouette is unremarkable. Musculoskeletal: No acute osseous pathology. Other findings: None IMPRESSION: 1. No acute cardiopulmonary disease process. 2. COPD changes.
[2024-03-08 10:45] VITALS: BP 122/68; PULSE 99; RESP 18; TEMP 98.6
== END 2024-03-08 10:44 | disposition home or self-care (01) ==
LOC: EC 07:17
DX: K52.9 Noninfective gastroenteritis and colitis, unspecified (principal)
CPT/HCPCS: 36415; 80053; 82150; 83605; 83690; 85025; 81001; 71046; 99284; 96374; 96361 ×2; J2405